=== PATIENT | male | born 1955 | race Caucasian/White ===

== ENCOUNTER 2016-09-18 18:09 | Emergency (ER) | payer OTHER ==
[2016-09-18 18:23] VITALS: RESP 16; TEMP 98.6
--- NOTE | 2016-09-18 18:55 | UCPHY ---
H & P Patient Type: Established Chief Complaint Nursing Narrative: ABDOMINAL PAIN JUST BELOW UMBILICUS, VOMITING , DIARRHEA FOR THE PAST 24 HOURS Time Seen by Provider: 09/18/16 18:33 HPI/ROS: 60-year-old male presents complaining of severe abdominal pain, nausea vomiting and diarrhea since yesterday. He denies prior history of surgery on his abdomen. He states he has had an umbilical hernia for a long time and that actually is not bothering him at present. His pain is primarily in the right lower quadrant however with it is diffusely throughout his abdomen. He has noticed a firm area in his right lower abdomen. Patient has a past medical history significant for hypertension, GERD, neuropathy, obesity. Review of systems General no fever no chills no weakness HEENT no eye pain no eye discharge. No eye redness, no sore throat Respiratory no cough, no shortness of breath Cardiac no chest pain, no peripheral edema GI positive abdominal pain positive nausea positive vomiting positive diarrhea no flank pain, no hematuria, no dysuria Musculoskeletal no myalgias, no joint pain Heme no easy bruising, no easy bleeding Endo no polyuria, no polydipsia Skin no rashes, no pruritus Neuro no syncope, no dizziness, no headaches Psych is no suicidal ideation, no homicidal ideation Source: Patient Exam Limitations: No limitations - Personal History Current Tetanus Diphtheria and Acellular Pertussis (TDAP): Yes Tetanus Vaccine Date: < 10 YEARS - Medical/Surgical History Hx Asthma: No Hx Chronic Respiratory Disease: No Hx Diabetes: No Hx Cardiac Disease: Yes Hx Renal Disease: No Hx Cirrhosis: No Hx Alcoholism: No Hx HIV/AIDS: No Hx Splenectomy or Spleen Trauma: No Other PMH: neuropathy, HTN, GERD - Family History Significant Family History: No pertinent family hx - Social History Smoking Status: Never smoked Alcohol Use: Occasionally Drug Use: None - Physical Exam Exam: 60-year-old male morbidly obese, writhing in pain secondary to abdominal pain, appears ill, afebrile Atraumatic normocephalic Extraocular muscles intact, anicteric Neck supple Lungs clear to auscultation Heart rapid rate regular rhythm Abdomen- obese, tinkling bowel sounds, umbilical hernia reducible nontender, right lower quadrant large mass firm and tender to palpation appears grossly normal Back no CVA tenderness Extremities No cyanosis clubbing or edema Skin-no rash Constitutional: Initial Vital Signs Temperature (C) 37 C 09/18/16 18:19 Heart Rate 99 09/18/16 18:19 Respiratory Rate 16 09/18/16 18:19 Blood Pressure 177/63 H 09/18/16 18:19 O2 Sat (%) 95 09/18/16 18:19 O2 Delivery Mode Room Air Allergies/Adverse Reactions: No Known Allergies Allergy (Verified 09/18/16 18:23) Home Medications: Medication Instructions Recorded Amitriptyline HCl 09/18/16 GABAPENTIN 09/18/16 Lisinopril 09/18/16 PRILOSEC 09/18/16 traMADol 09/18/16 Medical Decision Making - Diagnostics Imaging: CT abdomen positive for bowel obstruction, likely secondary to incarcerated right inguinal hernia, with edematous bowel ED Course/Re-evaluation: Patient seen and evaluated for severe abdominal pain IV established IV normal saline fluids begun Patient given ondansetron 4 mg IV push Patient given hydromorphone 1 mg IV push shortly thereafter given a 2nd mg of hydromorphone IV push Lab sent Lactate elevated at 3.2 WBC elevated 21 H&H 18 and [address] abdomen and pelvis with contrast Positive bowel obstruction likely secondary to incarcerated right inguinal hernia with edematous bowel Impression Acute bowel obstruction Plan Patient accepted in transfer to [facility] emergency department Patient accepted by the surgeon, Dr Spencer Pt to go with CD of CT abdomen - Data Points Laboratory Results: Laboratory Results 09/18/16 18:52 09/18/16 18:52 09/18/16 18:52 WBC 21.11 H 10^3/uL (3.80-9.50) RBC 5.96 10^6/uL (4.40-6.38) Hgb 18.8 H g/dL (13.7-17.5) Hct 51.2 H % (40.0-51.0) MCV 85.9 fL (81.5-99.8) MCH 31.5 pg (27.9-34.1) MCHC 36.7 g/dL (32.4-36.7) RDW 12.3 % (11.5-15.2) Plt Count 279 10^3/uL (150-400) MPV 8.9 fL (8.7-11.7) Neut % (Auto) 84.5 H % (39.3-74.2) Lymph % (Auto) 8.3 L % (15.0-45.0) [place] % (Auto) 6.7 % (4.5-13.0) Eos % (Auto) 0.0 L % (0.6-7.6) Baso % (Auto) 0.1 L % (0.3-1.7) Nucleat RBC Rel Count 0.0 % (0.0-0.2) Absolute Neuts (auto) 17.82 H 10^3/uL (1.70-6.50) Absolute Lymphs (auto) 1.75 10^3/uL (1.00-3.00) Absolute Monos (auto) 1.42 H 10^3/uL (0.30-0.80) Absolute Eos (auto) 0.01 L 10^3/uL (0.03-0.40) Absolute Basos (auto) 0.02 10^3/uL (0.02-0.10) Absolute Nucleated RBC 0.00 10^3/uL (0-0.01) Immature Gran % 0.4 % (0.0-1.1) Immature Gran # 0.09 10^3/uL (0.00-0.10) VBG Lactic Acid 3.2 H mmol/L (0.7-2.1) Sodium 140 mEq/L (134-144) Potassium 3.7 mEq/L (3.5-5.2) Chloride 99 mEq/L (97-110) Carbon Dioxide 21 L mEq/l (22-31) Anion Gap 20 H mEq/L (8-16) BUN 18 mg/dL (7-23) Creatinine 1.0 mg/dL (0.7-1.3) Estimated GFR > 60 Glucose 144 H mg/dL (70-100) Calcium 10.3 mg/dL (8.5-10.4) Total Bilirubin 1.1 mg/dL (0.1-1.4) AST 38 IU/L (17-59) ALT 32 IU/L (21-72) Alkaline Phosphatase 59 IU/L (38-126) Total Protein 7.9 g/dL (6.3-8.2) Albumin 4.6 g/dL (3.5-5.0) Lipase 151.0 IU/L (23-300) Medications Given: Discontinued Medications Hydromorphone HCl (Dilaudid) 1 mg IVP EDNOW ONE Stop: 09/18/16 19:04 Last Admin: 09/18/16 19:10 Dose: 1 mg Sodium Chloride (Ns) 1,000 mls @ 0 mls/hr IV ONCE ONE PRN Reason: Wide Open Stop: 09/18/16 18:57 Last Admin: 09/18/16 19:00 Dose: 1,000 mls Sodium Chloride (Ns) 1,000 mls @ 0 mls/hr IV ONCE ONE PRN Reason: Wide Open Stop: 09/18/16 19:14 Last Admin: 09/18/16 20:15 Dose: 1,000 mls Ceftriaxone Sodium 2 gm/ (Dextrose) 50 mls @ 100 mls/hr IV EDNOW ONE PRN Reason: Protocol Stop: 09/18/16 19:43 Last Admin: 09/18/16 20:21 Dose: 50 mls Ondansetron HCl (Zofran) 4 mg IVP EDNOW ONE Stop: 09/18/16 18:57 Last Admin: 09/18/16 18:55 Dose: 4 mg Departure - Departure Disposition: Acute Care Hospital [facility] Clinical Impression: Acute intestinal obstruction, Incarcerated right inguinal hernia Condition: Serious - PQRS PQRS Measurement: na
[2016-09-18] MEDS ORDERED: ONDANSETRON 4 MG/2 ML VIAL IVP ONE (18:56)
[2016-09-18] MEDS ORDERED: NS 1,000 ML IV ONE ×2 (18:56→19:13)
[2016-09-18 18:59] LABS: % IMMATURE GRANULYOCYTES 0.4 % (0.0-1.1); ABSOLUTE IMMATURE GRANULOCYTES 0.09 10^3/uL (0.00-0.10); ADD DIFF? NO; ADD MORPH? NO; ADD SCAN? NO; ATYPICAL LYMPHOCYTE FLAG 0 (0-99); FRAGMENT RBC FLAG 0 (0-99); HEMATOCRIT 51.2 % (40.0-51.0); HEMOGLOBIN 18.8 g/dL (13.7-17.5); LEFT SHIFT FLG 0 (0-99); LIPEMIA HEMOLYSIS FLAG 90 (0-99); MEAN CELL HEMOGLOBIN 31.5 pg (27.9-34.1); MEAN CELL HEMOGLOBIN CONCENTR. 36.7 g/dL (32.4-36.7); MEAN CELL VOLUME 85.9 fL (81.5-99.8); MEAN PLATELET VOLUME 8.9 fL (8.7-11.7); PLATELET CLUMPS FLAG 0 (0-99); PLATELET COUNT 279 10^3/uL (150-400); RED BLOOD CELL COUNT 5.96 10^6/uL (4.40-6.38); RED CELL DISTRIBUTION WIDTH 12.3 % (11.5-15.2)
[2016-09-18] MEDS ORDERED: HYDROmorphONE/DILAUDID 1 MG/ML SYR IVP ONE (19:03)
[2016-09-18 19:13] LABS: ALANINE AMINOTRANSFERASE 32 IU/L (21-72); ALBUMIN 4.6 g/dL (3.5-5.0); ALKALINE PHOSPHATASE 59 IU/L (38-126); ANION GAP 20 mEq/L (8-16); ASPARTATE AMINOTRANSFERASE 38 IU/L (17-59); BILIRUBIN,TOTAL 1.1 mg/dL (0.1-1.4); CALCIUM 10.3 mg/dL (8.5-10.4); CARBON DIOXIDE 21 mEq/l (22-31); CHLORIDE 99 mEq/L (97-110); GLOMERULAR FILTRATION RATE > 60; GLUCOSE 144 mg/dL (70-100); POTASSIUM 3.7 mEq/L (3.5-5.2); SODIUM 140 mEq/L (134-144); TOTAL PROTEIN 7.9 g/dL (6.3-8.2)
[2016-09-18] MEDS ORDERED: cefTRIAXone 2 GM in D5W 50 ML IV ONE (19:14)
[2016-09-18] MEDS ORDERED: IOPAMIDOL (ISOVUE-300) 100 ML BTL IV ONE (19:23)
[2016-09-18] MEDS: HYDROmorphONE/DILAUDID 1 MG/ML SYR IVP PRN ×2 (19:47→20:50)
[2016-09-18] MEDS ORDERED: cefTRIAXone 1 GM VIAL ONE (20:02)
[2016-09-18] MEDS ORDERED: NS 100 ML BAG IV ONE (20:03)
--- NOTE | 2016-09-18 20:47 | CT ---
CT Scan of the Abdomen and Pelvis (With Contrast) September 18, 2016 at 1944 Hours History: Vomiting, diarrhea, severe abdominal pain, morbidly obese, palpable nonpulsatile large mass right lower quadrant. Comparison: None. Technique: Axial computed tomographic images of the abdomen and pelvis were obtained with the unevent ful intravenous administration of 95 mL Isovue-300 contrast. No oral or rectal contrast which limits the study. Dose reduction techniques were utilized. CT Abdomen Findings: Lung bases: No pleural effusion.. Liver: Normal. Biliary system: No obstruction. Spleen: Normal. Pancreas: Normal. Adrenals: Normal. Kidneys: No obstruction or solid masses.. Abdominal aorta: Mild atherosclerotic aorta without aneurysm. Multiple dilated loops of small bowel involving the jejunum with decompression of the ileum and colon consistent with high-grade distal jejunal small bowel obstruction. This is secondary to a right ingu inal hernia with a loop of bowel extending into the hernia defect, distal jejunum, also demonstrating inflammatory changes, image 63 of series 2 with a transition point. Periumbilical abdominal wall hernia with mesenteric fat, measuring 8.5 x 7 cm with a small defect francis suring [address] Pelvis Findings: Right inguinal hernia with distal jejunum bowel loop extending into the hernia de fect, demonstrating a transition point and inflammatory changes consistent with incarceration and pro ximal small bowel obstruction, as described above. Multilevel severe degenerative disk disease lumbar spine, worse from L1-L2 through L5-S1 with degenerative grade 1 anterolisthesis at L4-L5 and severe bilateral facet arthropathy, resulting in severe central canal stenosis at the L4-L5 level. Right tot al hip arthroplasty. Impression: 1. Right inguinal hernia with incarcerated loop of distal jejunum and proximal small bowel obstructio n. Recommend surgical consult. 2. Periumbilical abdominal wall hernia with mesenteric fat. 3. Severe degenerative lumbar spine, resulting in severe stenosis at L4-L5. Findings and recommendations discussed with emergency department physician, Jodie Baca MD a t 2014 hours on September 18, 2016. Final report concurs with initial preliminary interpretation. A test result has been communicated to a licensed care provider and documented in the [employer] Critical Result system on 09/18/2016 20:51, Message ID [id number].
[2016-09-18 21:25] VITALS: BP 134/72; PULSE 84; O2SAT 92
== END 2016-09-18 20:55 | disposition short-term general hospital (02) ==
LOC: CED 18:09
DX: K40.30 Unilateral inguinal hernia, with obstruction, without gangrene, not specified as recurrent (principal); I10 Essential (primary) hypertension; K21.9 Gastro-esophageal reflux disease without esophagitis; E66.01 Morbid (severe) obesity due to excess calories
CPT/HCPCS: 74177-PO; 80053-PO; 83605-PO; 83690-PO; 85025-PO; 96361-PO; 96365-PO; 96375-PO; 96376-PO; 99215-PO; G0463-PO; J0696; J1170; J2405; Q9967

== ENCOUNTER 2017-03-21 21:56 | Inpatient (IN) | payer OTHER ==
--- NOTE | 2017-03-21 22:03 | EDPHY ---
H & P HPI/ROS: HPI CHIEF COMPLAINT: Left Leg swelling, pain, redness. Drainage. HISTORY OF PRESENT ILLNESS: This patient is a 61-year-old male significant past medical history for hypertension, denies having history of diabetes he has had a history of cellulitis in the past he presents emergency room by private vehicle. He states for the past 24 hours he has noticed redness swelling of his left lower extremity. He was seen at [facility] started on Bactrim. He states he decided come the emergency room tonight as it has acutely gotten bigger worse and more red. He denies fever. Pain is not extreme. He is able to ambulate. He states he has been moving and noticed that through his pant legs it has been wet draining. Past Medical History: Hypertension, history of right lower extremity cellulitis Past Surgical History: no recent surgery Social History: denies daily use drugs alcohol tobacco products. Family History: Noncontributory ROS REVIEW OF SYSTEMS: A comprehensive 10 point review of systems is otherwise negative aside from elements mentioned in the history of present illness. Exam Constitutional triage nursing summary reviewed, vital signs reviewed, awake/ alert. Eyes normal conjunctivae and sclera, EOMI, PERRLA. HENT normal inspection, atraumatic, moist mucus membranes, no epistaxis, neck supple/ no meningismus, no raccoon eyes. Respiratory clear to auscultation bilaterally, normal breath sounds, no respiratory distress, no wheezing. Cardiovascular rate normal, regular rhythm, no murmur, no edema, distal pulses normal. Gastrointestinal soft, non-tender, no rebound, no guarding, normal bowel sounds, no distension, no pulsatile mass. Genitourinary no CVA tenderness. Musculoskeletal LLE: Warm. Neurovascular intact. Rather large left lower extremity swelling edema present with yellow drainage fluid coming weeping out of the edematous leg, there is significant erythema and warmth, there is no crepitus, no evidence of necrotizing fasciitis, appears to be significant left lower extremity cellulitis, Swelling/edema present to end of foot. Multiple blisters present, medial aspect distal ankle: skin tear/blister present. no midline vertebral tenderness, full range of motion, no calf swelling, no tenderness of extremities, no meningismus, good pulses, neurovascularly intact. Skin pink, warm, & dry, no rash, skin atraumatic. Neurologic awake, alert and oriented x 3, AAOx3, moves all 4 extremities equally, motor intact, sensory intact, CN II-XII intact, normal cerebellar, normal vision, normal speech. Psychiatric normal mood/affect. Heme/Lymph/Immune no lymphadenopathy. Differential Diagnosis: includes but is not limited to in a particular order left lower extremity cellulitis, MRSA infection, strep infection, significant left lower extremity edema, DVT, left leg abscess Medical Decision Making: plan for this patient blood cultures, lactic acid, broad-spectrum antibiotics including IV vancomycin IV Zosyn to treat this acute left lower extremity cellulitis that patient tells me it has progressively gotten worse over the last 24 hours. I do recommend this patient gets an ultrasound once admitted over at [facility] to rule out DVT. He also may need MRI of his left lower extremity. As of right now in the ER will start antibiotics after blood cultures, broad-spectrum and admit to the hospital. Vital signs are reviewed. He is nontoxic appearing. No evidence of sepsis. Re-evaluation: 2218: Spoke with Dr. Remy, hospitalist who agrees to admit this patient for left lower extremity cellulitis. Plan for right now in the emergency room broad-spectrum antibiotics. Blood work. Blood cultures. And transfer over to [facility] hospital. 2224: vanco started. Zosyn Is not stocked in the PACs. Zosyn will need to be started at [facility]. Patient be transferred over by [facility]. Appropriate transfer will be set up. patient has agreed for this. Source: Patient - Personal History Tetanus Vaccine Date: < 10 YEARS - Medical/Surgical History Hx Asthma: No Hx Chronic Respiratory Disease: No Hx Diabetes: No Hx Cardiac Disease: Yes Hx Renal Disease: No Hx Cirrhosis: No Hx Alcoholism: No Hx HIV/AIDS: No Hx Splenectomy or Spleen Trauma: No Other PMH: neuropathy, HTN, GERD - Social History Smoking Status: Never smoked Constitutional: Initial Vital Signs Temperature (C) 37.2 C 03/21/17 22:08 Heart Rate 80 03/21/17 22:08 Respiratory Rate 18 03/21/17 22:08 Blood Pressure 160/86 H 03/21/17 22:08 O2 Sat (%) 97 03/21/17 22:08 O2 Delivery Mode Room Air Allergies/Adverse Reactions: No Known Allergies Allergy (Verified 03/21/17 22:07) Home Medications: Medication Instructions Recorded Amitriptyline HCl [Elavil 25 mg 25 mg PO TID 09/18/16 (RX)] Gabapentin [Neurontin 300 MG (*)] 600 mg PO TID 09/18/16 Lisinopril/Hctz 10/12.5 mg 1 ea PO DAILY 09/18/16 [Zestoretic/Prinzide 10/12.5MG (*)] Omeprazole [Prilosec 20 mg] 20 mg PO DAILY 09/18/16 traMADol [Ultram 50 mg (*)] 50 mg PO TID 09/18/16 Sulfamethox/Tmp 800/160 mg 1 tab PO BID 03/21/17 [Bactrim Ds] Medical Decision Making - Data Points Medications Given: Amitriptyline HCl (Elavil) 25 mg PO TID [facility] Stop: 09/18/17 15:59 Last Admin: 03/24/17 21:24 Dose: 25 mg Enoxaparin Sodium (Lovenox) 40 mg SC DAILY [facility] Stop: 09/18/17 08:59 Last Admin: 03/24/17 08:41 Dose: 40 mg Gabapentin (Neurontin) 600 mg PO TID [facility] Stop: 09/18/17 15:59 Last Admin: 03/24/17 21:24 Dose: 600 mg Lisinopril/HCTZ (Zestoretic) 1 ea PO DAILY [facility] Stop: 09/19/17 08:59 Last Admin: 03/24/17 08:40 Dose: 1 ea Cefazolin Sodium/Dextrose (Ancef 1 Gm (Premix)) 50 mls @ 200 mls/hr IV Q8HRS [facility] PRN Reason: Protocol Stop: 04/21/17 13:59 Last Admin: 03/24/17 21:18 Dose: 50 mls Miconazole Nitrate (Micatin 2%) 1 george TP BID [facility] Stop: 04/22/17 15:59 Last Admin: 03/24/17 21:28 Dose: 1 george Oxycodone HCl (Oxycodone Ir) 5 - 10 mg PO Q4HRS PRN PRN Reason: Pain, Severe Able to Take PO Stop: 04/01/17 01:12 Last Admin: 03/24/17 21:24 Dose: 10 mg Pantoprazole Sodium (Protonix) 40 mg PO DAILY [facility] Stop: 09/19/17 08:59 Last Admin: 03/24/17 08:40 Dose: 40 mg Polyethylene Glycol (Miralax) 17 gm PO DAILY PRN; Protocol PRN Reason: Constipation Stop: 09/20/17 17:25 Last Admin: 03/24/17 17:51 Dose: 17 gm Senna/Docusate Sodium (Senokot-S) 1 - 2 tab PO BID ADI PRN Reason: Protocol Stop: 09/20/17 20:59 Last Admin: 03/24/17 21:23 Dose: 1 tab Tramadol HCl (Ultram) 50 mg PO TID ADI Stop: 09/18/17 15:59 Last Admin: 03/24/17 21:25 Dose: 50 mg Discontinued Medications Bisacodyl (Dulcolax Rectal) 10 mg [place] DAILY PRN PRN Reason: Constipation Stop: 09/18/17 15:44 Last Admin: 03/22/17 16:05 Dose: 10 mg Fluconazole (Diflucan) 150 mg PO ONCE ONE Stop: 03/24/17 10:12 Last Admin: 03/24/17 11:02 Dose: 150 mg Vancomycin/Sodium Chloride (Vancomycin 1 Gm (Premix)) 250 mls @ 250 mls/hr IV EDNOW ONE PRN Reason: Protocol Stop: 03/21/17 23:11 Last Admin: 03/21/17 22:27 Dose: 250 mls Piperacillin/Tazobactam/Dextrose (Zosyn (Premix)) 100 mls @ 200 mls/hr IV EDNOW ONE PRN Reason: Protocol Stop: 03/21/17 22:41 Last Admin: 03/21/17 22:50 Dose: Not Given Sodium Chloride (Ns) 1,000 mls @ 0 mls/hr IV ONCE ONE PRN Reason: Wide Open Stop: 03/21/17 22:40 Last Admin: 03/21/17 22:53 Dose: 1,000 mls Sodium Chloride (Ns) 1,000 mls @ 250 mls/hr IV ONCE ONE Stop: 03/22/17 04:43 Last Admin: 03/22/17 01:48 Dose: 1,000 mls Vancomycin HCl 1.5 gm/ (Dextrose) 250 mls @ 166.667 mls/hr IV Q12H [facility] Stop: 04/21/17 08:59 Last Admin: 03/22/17 10:30 Dose: 250 mls Nystatin (Mycostatin Powder) 1 george TP TID [facility] Stop: 04/21/17 15:59 Last Admin: 03/24/17 08:42 Dose: 1 george Senna/Docusate Sodium (Senokot-S) 1 tab PO BID [facility] Stop: 09/18/17 01:13 Last Admin: 03/24/17 08:41 Dose: 1 tab Departure - Departure Disposition: [facility] Clinical Impression: Cellulitis Qualifiers: Site of cellulitis: extremity Site of cellulitis of extremity: lower extremity Laterality: left Qualified Code(s): L03.116 - Cellulitis of left lower limb Condition: Fair
[2017-03-21] MEDS ORDERED: PIPERACILLIN/TAZO 4.5 GM/DEX 100 ML IV ONE (22:12)
[2017-03-21] MEDS ORDERED: VANCOMYCIN HCL/NORMAL SALINE 250 ML IV ONE (22:12)
[2017-03-21] MEDS ORDERED: NS 1,000 ML IV ONE (22:39)
[2017-03-21 22:42] LABS: % IMMATURE GRANULYOCYTES 0.6 % (0.0-1.1); ABSOLUTE IMMATURE GRANULOCYTES 0.08 10^3/uL (0.00-0.10); ADD DIFF? NO; ADD MORPH? NO; ADD SCAN? NO; ATYPICAL LYMPHOCYTE FLAG 10 (0-99); FRAGMENT RBC FLAG 0 (0-99); HEMATOCRIT 41.1 % (40.0-51.0); HEMOGLOBIN 14.8 g/dL (13.7-17.5); LEFT SHIFT FLG 0 (0-99); LIPEMIA HEMOLYSIS FLAG 90 (0-99); MEAN CELL HEMOGLOBIN 31.2 pg (27.9-34.1); MEAN CELL VOLUME 86.7 fL (81.5-99.8); MEAN PLATELET VOLUME 9.3 fL (8.7-11.7); PLATELET CLUMPS FLAG 20 (0-99); PLATELET COUNT 191 10^3/uL (150-400); RED BLOOD CELL COUNT 4.74 10^6/uL (4.40-6.38); RED CELL DISTRIBUTION WIDTH 12.8 % (11.5-15.2)
[2017-03-21 22:50] LABS: SEDIMENTATION RATE 57 MM/HR (0-20)
[2017-03-21 22:57] LABS: ALBUMIN 3.9 g/dL (3.5-5.0); BILIRUBIN,TOTAL 0.9 mg/dL (0.1-1.4); CALCIUM 9.2 mg/dL (8.5-10.4); CREATININE 1.4 mg/dL (0.7-1.3); POTASSIUM 3.4 mEq/L (3.5-5.2); TOTAL PROTEIN 7.1 g/dL (6.3-8.2)
[2017-03-22] MEDS ORDERED: ACETAMINOPHEN 325 MG TAB PO PRN (00:44)
[2017-03-22] MEDS ORDERED: ONDANSETRON DISINTEGRATING 4 MG TAB PO PRN (00:44)
[2017-03-22] MEDS ORDERED: ONDANSETRON 4 MG/2 ML VIAL IVP PRN (00:44)
[2017-03-22] MEDS ORDERED: NS 1,000 ML IV ONE (00:44)
[2017-03-22] MEDS: oxyCODONE IR 5 MG TAB PO PRN ×2 (01:47→21:13)
[2017-03-22] MEDS: SENNOSIDES/DOCUSATE SODIUM TAB PO SCH ×3 (01:48→21:08)
--- NOTE | 2017-03-22 02:27 | PDGENHP ---
History and Physical - Chief Complaint Leg redness - History of Present Illness 61 yo M w/ hx of pre-DM and 2 prior bouts of LLE cellulitis presents with 3 days of progress L leg redness, pain, and swelling. Patient first noticed mild redness on Monday. Symptoms progressed over the next few days and the leg became red, swollen, and painful. He reports two prior similar episodes, last 2 years ago requiring IV abx. He has a prosthetic R hip but no hardware on LLE. He does have clearly onychomycotic nails and notes some recent trauma to the 3rd toe on his L foot. History Information - Allergies/Home Medication List Allergies/Adverse Reactions: No Known Allergies Allergy (Verified 03/21/17 22:07) Home Medications: Amitriptyline HCl 09/18/16 [Last Taken Unknown] GABAPENTIN 09/18/16 [Last Taken Unknown] Lisinopril 09/18/16 [Last Taken Unknown] PRILOSEC 09/18/16 [Last Taken Unknown] traMADol 09/18/16 [Last Taken Unknown] Bactrim DS 03/21/17 [Last Taken Unknown] I have personally reviewed and updated: family history, medical history - Past Medical History Additional medical history: pre-DM. Cellulitis - Family History Additional family history: Osteoarthritis - Social History Smoking Status: Never smoked Alcohol Use: Occasionally Drug Use: None Review of Systems ROS: 10pt was reviewed & negative except for what was stated in HPI & below Physical Exam Temp Pulse Resp BP Pulse Ox 36.8 C 85 18 132/66 H 93 03/22/17 00:07 03/22/17 00:07 03/22/17 00:07 03/22/17 00:07 03/22/17 00:07 Constitutional: no apparent distress, appears nourished Eyes: PERRL, EOMI Ears, Nose, Mouth, Throat: moist mucous membranes, no oral mucosal ulcers Cardiovascular: regular rate and rhythym, no murmur, rub, or gallop Respiratory: no respiratory distress, no rales or rhonchi Gastrointestinal: normoactive bowel sounds, soft, non-tender abdomen Skin: erythema (Significant erythema and warmth of LLE extending to L groin; some purulent weeping noted) Musculoskeletal: full muscle strength, no muscle tenderness Neurologic: AAOx3, CN II-XII Intact Psychiatric: interacting appropriately, not anxious Lab Data & Imaging Review 03/21/17 22:35 03/21/17 22:35 WBC 14.18 10^3/uL (3.80-9.50) H 03/21/17 22:35 RBC 4.74 10^6/uL (4.40-6.38) 03/21/17 22:35 Hgb 14.8 g/dL (13.7-17.5) 03/21/17 22:35 Hct 41.1 % (40.0-51.0) 03/21/17 22:35 MCV 86.7 fL (81.5-99.8) 03/21/17 22:35 MCH 31.2 pg (27.9-34.1) 03/21/17 22: MCHC 36.0 g/dL (32.4-36.7) 03/21/17 22:35 RDW 12.8 % (11.5-15.2) 03/21/17 22:35 Plt Count 191 10^3/uL (150-400) 03/21/17 22:35 MPV 9.3 fL (8.7-11.7) 03/21/17 22:35 Neut % (Auto) 75.6 % (39.3-74.2) H 03/21/17 22:35 Lymph % (Auto) 12.4 % (15.0-45.0) L 03/21/17 22:35 [place] % (Auto) 10.5 % (4.5-13.0) 03/21/17 22:35 Eos % (Auto) 0.6 % (0.6-7.6) 03/21/17 22:35 Baso % (Auto) 0.3 % (0.3-1.7) 03/21/17 22:35 Nucleat RBC Rel Count 0.0 % (0.0-0.2) 03/21/17 22:35 Absolute Neuts (auto) 10.73 10^3/uL (1.70-6.50) H 03/21/17 22:35 Absolute Lymphs (auto) 1.76 10^3/uL (1.00-3.00) 03/21/17 22:35 Absolute Monos (auto) 1.49 10^3/uL (0.30-0.80) H 03/21/17 22:35 Absolute Eos (auto) 0.08 10^3/uL (0.03-0.40) 03/21/17 22:35 Absolute Basos (auto) 0.04 10^3/uL (0.02-0.10) 03/21/17 22:35 Absolute Nucleated RBC 0.00 10^3/uL (0-0.01) 03/21/17 22:35 Immature Gran % 0.6 % (0.0-1.1) 03/21/17 22:35 Immature Gran # 0.08 10^3/uL (0.00-0.10) 03/21/17 22:35 ESR 57 MM/HR (0-20) H 03/21/17 22:35 VBG Lactic Acid 1.1 mmol/L (0.7-2.1) 03/21/17 22:35 Sodium 134 mEq/L (134-144) 03/21/17 22:35 Potassium 3.4 mEq/L (3.5-5.2) L 03/21/17 22:35 Chloride 98 mEq/L (97-110) 03/21/17 22:35 Carbon Dioxide 20 mEq/l (22-31) L 03/21/17 22:35 Anion Gap 16 mEq/L (8-16) 03/21/17 22:35 BUN 27 mg/dL (7-23) H 03/21/17 22:35 Creatinine 1.4 mg/dL (0.7-1.3) H 03/21/17 22:35 Estimated GFR 51 03/21/17 22:35 Glucose 105 mg/dL (70-100) H 03/21/17 22:35 Calcium 9.2 mg/dL (8.5-10.4) 03/21/17 22:35 Total Bilirubin 0.9 mg/dL (0.1-1.4) 03/21/17 22:35 AST 33 IU/L (17-59) 03/21/17 22:35 ALT 34 IU/L (21-72) 03/21/17 22:35 Alkaline Phosphatase 68 IU/L (38-126) 03/21/17 22:35 C-Reactive Protein 232.0 mg/L (<10.0) H 03/21/17 22:35 Total Protein 7.1 g/dL (6.3-8.2) 03/21/17 22:35 Albumin 3.9 g/dL (3.5-5.0) 03/21/17 22:35 Assessment & Plan Assessment: 61 yo M presenting with cellulitis of LLE. Plan: 1. LLE cellulitis - With no evidence of sepsis or systemic symptoms at this time. Suspect predisposed to recurrent cellulitis due to significant onychomycosis and trauma to 3rd digit of L foot. - Ultrasound to evaluate for DVT and subcutaneous fluid collection - Vancomycin IV noting some purulence present - Blood cultures ordered - Oxycodone PRN for pain control Diet - Regular Code - Full Ppx - LMWH Dispo - Admit to inpatient for IV abx
[2017-03-22 04:59] LABS: % IMMATURE GRANULYOCYTES 0.6 % (0.0-1.1); ABSOLUTE IMMATURE GRANULOCYTES 0.07 10^3/uL (0.00-0.10); ADD DIFF? NO; ADD MORPH? NO; ADD SCAN? NO; ATYPICAL LYMPHOCYTE FLAG 10 (0-99); FRAGMENT RBC FLAG 0 (0-99); HEMOGLOBIN 13.1 g/dL (13.7-17.5); LEFT SHIFT FLG 0 (0-99); LIPEMIA HEMOLYSIS FLAG 90 (0-99); MEAN CELL HEMOGLOBIN 30.5 pg (27.9-34.1); MEAN CELL HEMOGLOBIN CONCENTR. 34.5 g/dL (32.4-36.7); MEAN CELL VOLUME 88.6 fL (81.5-99.8); MEAN PLATELET VOLUME 9.3 fL (8.7-11.7); PLATELET CLUMPS FLAG 0 (0-99); PLATELET COUNT 159 10^3/uL (150-400); RED BLOOD CELL COUNT 4.29 10^6/uL (4.40-6.38); RED CELL DISTRIBUTION WIDTH 12.9 % (11.5-15.2)
[2017-03-22 05:21] LABS: ANION GAP 10 mEq/L (8-16); CALCIUM 8.5 mg/dL (8.5-10.4); CARBON DIOXIDE 22 mEq/l (22-31); CHLORIDE 100 mEq/L (97-110); GLOMERULAR FILTRATION RATE > 60; GLUCOSE 104 mg/dL (70-100); POTASSIUM 3.5 mEq/L (3.5-5.2); SODIUM 132 mEq/L (134-144)
[2017-03-22] MEDS: ENOXAPARIN 40 MG/0.4 ML SYR SC SCH (08:43)
[2017-03-22] MEDS ORDERED: VANCOMYCIN 1.5 GM in D5W 250 ML IV SCH (09:00)
[2017-03-22] MEDS ORDERED: VANCOMYCIN HCL/NORMAL SALINE 250 ML IV SCH (10:00)
--- NOTE | 2017-03-22 10:46 | HOSPPROG ---
Hospitalist Progress Note Assessment/Plan: # LLE cellulitis, suspect strep, recurrent, failed bactrim outpatient - no purulence on my exam, no risk for MRSA - empiric ancef - follow cultures - follow clinical course closely # toe abrasions - may be protal of entry - wound care c/s # intertriginous candidiasis - nystatin powder # idiopathic neuropathy - also risk factor for cellulitis - Elavil, gabapentin # NICO - resolved # mild hypoNa - follow Subjective: leg may look slightly better Objective: Vital Signs Temp Pulse Resp BP Pulse Ox 36.4 C 73 16 107/59 L 93 03/22/17 08:12 03/22/17 08:12 03/22/17 08:12 03/22/17 08:12 03/22/17 08:12 Laboratory Results 03/22/17 04:45 03/22/17 04:45 03/21/17 03/22/17 03/23/17 05:59 05:59 05:59 Intake Total 1250 500 Output Total 750 Balance 500 500 chart reviewed US reviewed - Physical Exam Constitutional: no apparent distress, appears nourished Cardiovascular: regular rate and rhythym, no murmur, rub, or gallop Respiratory: no respiratory distress, no rales or rhonchi, clear to auscultation Gastrointestinal: normoactive bowel sounds, soft, non-tender abdomen Musculoskeletal: other (LLE cellulitis; bright erythema to knee, mild pink to upper thigh medial aspect) ICD10 Worksheet Patient Problems: Problems Problem Status Onset Cellulitis Acute
--- NOTE | 2017-03-22 11:58 | WOCRNPDOC ---
WOCRN Advanced Assessment Note - Skin Integrity Problem, Advanced Assess Left Lower Leg Dressing Type: Mepilex Transfer Exudate Amount: Excessive Exudate Characteristic(s): Serous Marla Wound Tissue: Erythema (previously marked ) Skin Integrity Problem Comment: Multiple blisters forming and rupturing along anterior and medial leg from cellulitis. Some have de roofed exposing a clean wound bed. Toe wound is dried and scabbed. Some nail remians partially torn/ cut. Wound care recommends sample processor address this issue. Will write orders for lower leg care. Wound care will round again next week.
[2017-03-22] MEDS: NYSTATIN POWDER 15 GM BTL TP SCH ×2 (15:40→21:10)
[2017-03-22] MEDS: traMADol 50 MG TAB PO SCH ×2 (15:40→21:07)
[2017-03-22] MEDS: AMITRIPTYLINE HCL 25 MG TAB PO SCH ×2 (15:40→21:07)
[2017-03-22] MEDS: GABAPENTIN 300 MG CAP PO SCH ×2 (15:40→21:07)
[2017-03-22] MEDS ORDERED: BISACODYL 10 MG SUPP PR PRN (15:45)
[2017-03-23 04:46] LABS: % IMMATURE GRANULYOCYTES 0.7 % (0.0-1.1); ABSOLUTE IMMATURE GRANULOCYTES 0.07 10^3/uL (0.00-0.10); ADD DIFF? NO; ADD MORPH? NO; ADD SCAN? NO; ATYPICAL LYMPHOCYTE FLAG 10 (0-99); FRAGMENT RBC FLAG 0 (0-99); HEMATOCRIT 38.6 % (40.0-51.0); HEMOGLOBIN 13.2 g/dL (13.7-17.5); LEFT SHIFT FLG 0 (0-99); LIPEMIA HEMOLYSIS FLAG 90 (0-99); MEAN CELL HEMOGLOBIN 31.1 pg (27.9-34.1); MEAN CELL HEMOGLOBIN CONCENTR. 34.2 g/dL (32.4-36.7); MEAN CELL VOLUME 90.8 fL (81.5-99.8); MEAN PLATELET VOLUME 9.2 fL (8.7-11.7); PLATELET CLUMPS FLAG 0 (0-99); PLATELET COUNT 183 10^3/uL (150-400); RED BLOOD CELL COUNT 4.25 10^6/uL (4.40-6.38); RED CELL DISTRIBUTION WIDTH 13.2 % (11.5-15.2)
[2017-03-23 05:09] LABS: ANION GAP 8 mEq/L (8-16); CALCIUM 8.7 mg/dL (8.5-10.4); CARBON DIOXIDE 25 mEq/l (22-31); CHLORIDE 101 mEq/L (97-110); CREATININE 0.9 mg/dL (0.7-1.3); GLOMERULAR FILTRATION RATE > 60; GLUCOSE 105 mg/dL (70-100); POTASSIUM 4.2 mEq/L (3.5-5.2); SODIUM 134 mEq/L (134-144)
[2017-03-23] MEDS: LISINOPRIL/HCTZ 10/12.5 MG 1 EA TAB PO SCH (08:39)
[2017-03-23] MEDS: SENNOSIDES/DOCUSATE SODIUM TAB PO SCH ×2 (08:39→20:59)
[2017-03-23] MEDS: traMADol 50 MG TAB PO SCH ×3 (08:39→21:00)
[2017-03-23] MEDS: ENOXAPARIN 40 MG/0.4 ML SYR SC SCH (08:40)
[2017-03-23] MEDS: AMITRIPTYLINE HCL 25 MG TAB PO SCH ×3 (08:40→21:00)
[2017-03-23] MEDS: PANTOPRAZOLE SODIUM 40 MG TAB PO SCH (08:40)
[2017-03-23] MEDS: NYSTATIN POWDER 15 GM BTL TP SCH ×3 (08:40→21:07)
[2017-03-23] MEDS: GABAPENTIN 300 MG CAP PO SCH ×3 (08:40→21:00)
[2017-03-23] MEDS ORDERED: NON-FORMULARY NEW DRUG (Omeprazole [Prilosec 20 Mg] 20 MG) PO SCH (09:00)
--- NOTE | 2017-03-23 09:01 | HOSPPROG ---
Hospitalist Progress Note Assessment/Plan: # LLE cellulitis, suspect strep, recurrent, failed bactrim outpatient - today there is mild purulence on medial aspect of L ankle - will ask for ID assistance regarding MRSA coverage - cont empiric ancef - high risk given extent of cellulitis # toe abrasions - may be protal of entry - wound care c/s # intertriginous candidiasis - better today - nystatin powder # idiopathic neuropathy - also risk factor for cellulitis - Elavil, gabapentin # NICO - resolved # mild hypoNa - follow Subjective: leg still painful; had a BM without diarrhea Objective: Vital Signs Temp Pulse Resp BP Pulse Ox 36.9 C 76 16 135/75 H 93 03/23/17 04:11 03/23/17 04:11 03/23/17 04:11 03/23/17 08:39 03/23/17 04:11 Laboratory Results 03/23/17 04:37 03/23/17 04:37 03/22/17 03/23/17 03/24/17 05:59 05:59 05:59 Intake Total 2250 2650 Output Total 750 Balance 1500 2650 - Physical Exam Constitutional: no apparent distress, appears nourished Cardiovascular: regular rate and rhythym, no murmur, rub, or gallop Respiratory: no respiratory distress, no rales or rhonchi, clear to auscultation Gastrointestinal: normoactive bowel sounds, soft, non-tender abdomen Musculoskeletal: other (LLE with ongoing bright erythema, slightly receded from knee; less salmon pink on inner thigh) ICD10 Worksheet Patient Problems: Problems Problem Status Onset Cellulitis Acute
[2017-03-23] MEDS ORDERED: KETOROLAC 15 MG/1 ML SDV IVP PRN (11:22)
[2017-03-23] MEDS: MICONAZOLE NITRATE 15 GM CRTUBE TP SCH ×2 (16:32→21:07)
--- NOTE | 2017-03-23 17:13 | GCON ---
[f rep st] CONSULTATION INFECTIOUS DISEASE CONSULTATION. DATE OF CONSULTATION: 03/23/2017 REASON FOR CONSULTATION: Cellulitis of the left lower extremity. PHYSICIAN REQUESTING CONSULTATION: Jurgen Coats MD. HPI: 61-year-old male with 2 prior episodes of left lower extremity cellulitis , who presents to the emergency room 03/22/2017 after noticing increasing redness and swelling of his left lower extremity that were not responding to Bactrim. The patient started noticing these changes on March 20 and presented to his primary care who started him on Bactrim. Patient describes progressive redness and swelling of this leg and he presented to the emergency room on the for further evaluation. Notably, patient has been moving out of his apartment for several weeks and has sustained multiple small injuries on the lower extremities. In addition, he reports athletes foot and onychomycosis and worries this is the portal of entry. He does describe some associated malaise and subjective fevers. REVIEW OF SYSTEMS: A complete 10-point review of systems was performed and is negative except as mentioned in HPI. PAST MEDICAL HISTORY: Prediabetes, history of recurrent cellulitis, total right hip replacement, neuropathy of unknown etiology. ALLERGIES: NKDA. MEDICATIONS: The patient initially received vancomycin IV but was transitioned to cefazolin 1 g IV q.8 on 03/22/2017. He is also on gabapentin 600 mg 3 times daily, lisinopril 1 tab daily, Zofran, oxycodone IR as needed for pain. Ultram as needed for pain, Senokot 1 b.i.d. scheduled, Protonix 40 mg daily and Elavil 25 mg 3 times daily. FAMILY HISTORY: Positive for osteoarthritis. SOCIAL HISTORY: Never smoked. Occasional alcohol. No drug use. 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 PHYSICAL EXAM: VITAL SIGNS: Afebrile throughout his hospital course. Temperature today is 36.8, blood pressure is 153/80, heart rate is 82, respiratory rate 18, saturation 93% on room air. GENERAL: This is a nontoxic- appearing, obese male, lying in bed in no acute distress. HEENT: Pupils are reactive bilaterally. Oropharynx fair dentition. Moist mucous membranes. NECK : Supple. No lymphadenopathy. CARDIOVASCULAR: Regular rate, no murmurs. CHEST: Clear to auscultation bilaterally. ABDOMEN: Obese, soft, nontender. Bowel sounds are present. EXTREMITIES: Patient had marked erythema of his left lower extremity and associated swelling. Erythema was circumferential on his left lower extremity with several areas of bulla and there was serosanguineous drainage. He also had erythema tracking up his medial thigh. The patient had reported some recession. He had 2+ pedal pulses bilaterally. His right lower extremity had no edema. Patient had scaly changes and maculopapular rash on his feet in addition to thickened nails consistent with onychomycosis. NEUROLOGIC: He is alert and oriented x4. Moving all 4 extremities equally. SKIN FINDINGS: No other skin findings than documented under lower extremities. No peripheral stigmata of endocarditis. LABORATORY: White count on admission of 14,000, today is 10.6, hematocrit 38, platelets of 183, 61% neutrophils, 19% lymphocytes, 13% monocytes. Creatinine is 0.8. AST 33, ALT 34, CRP 232. Blood cultures were collected on admission , are no growth to date. Gram culture of left ankle wound, collected by me today, is pending. IMAGING: Left lower extremity Doppler was negative for DVT. ASSESSMENT AND PLAN: This is a 61-year-old gentleman with pre diabetes, hypertension, who developed left lower extremity cellulitis and lymphangitis while taking Bactrim. Certainly, portal of entry relating to multiple injuries from moving or chronic, fairly severe tinea pedis. This could be explained in multiple ways, most concerning that Bactrim does not cover Streptococcus well and this could account for progression while on oral antibiotics. Other explanation as due to severity of disease, patient simply needed IV antibiotics to get over infection. Agree with primary team's transition from vancomycin to Ancef as disease appears most consistent with Streptococcus. Nonetheless MSSA will still be covered and reviewing patient's past microbiology, patient has no history of MRSA. Assessment 1. LLE cellulitis with lymphangitis 2. Tinea Pedis and onychomycosis 3. Leukocytosis secondary to infection Plan: 1. Would continue Ancef. 2. Obtain wound culture. 3. Continue elevation of left lower extremity. 4. Would apply miconazole cream to patient's bilateral feet Thank you for this consultation. We will continue to follow on a daily basis. /[id number]/MODL MTDD
[2017-03-23] MEDS: oxyCODONE IR 5 MG TAB PO PRN (20:58)
[2017-03-24 04:58] LABS: % IMMATURE GRANULYOCYTES 2.2 % (0.0-1.1); ABSOLUTE IMMATURE GRANULOCYTES 0.21 10^3/uL (0.00-0.10); ADD DIFF? NO; ADD MORPH? NO; ADD SCAN? NO; ATYPICAL LYMPHOCYTE FLAG 60 (0-99); FRAGMENT RBC FLAG 0 (0-99); HEMATOCRIT 38.4 % (40.0-51.0); LEFT SHIFT FLG 10 (0-99); LIPEMIA HEMOLYSIS FLAG 90 (0-99); MEAN CELL HEMOGLOBIN 30.7 pg (27.9-34.1); MEAN CELL HEMOGLOBIN CONCENTR. 33.9 g/dL (32.4-36.7); MEAN CELL VOLUME 90.6 fL (81.5-99.8); MEAN PLATELET VOLUME 8.6 fL (8.7-11.7); PLATELET CLUMPS FLAG 10 (0-99); PLATELET COUNT 186 10^3/uL (150-400); RED BLOOD CELL COUNT 4.24 10^6/uL (4.40-6.38); RED CELL DISTRIBUTION WIDTH 13.2 % (11.5-15.2)
[2017-03-24] MEDS: GABAPENTIN 300 MG CAP PO SCH ×3 (08:40→21:24)
[2017-03-24] MEDS: PANTOPRAZOLE SODIUM 40 MG TAB PO SCH (08:40)
[2017-03-24] MEDS: LISINOPRIL/HCTZ 10/12.5 MG 1 EA TAB PO SCH (08:40)
[2017-03-24] MEDS: traMADol 50 MG TAB PO SCH ×3 (08:40→21:25)
[2017-03-24] MEDS: SENNOSIDES/DOCUSATE SODIUM TAB PO SCH ×2 (08:41→21:23)
[2017-03-24] MEDS: ENOXAPARIN 40 MG/0.4 ML SYR SC SCH (08:41)
[2017-03-24] MEDS: AMITRIPTYLINE HCL 25 MG TAB PO SCH ×3 (08:41→21:24)
[2017-03-24] MEDS: MICONAZOLE NITRATE 15 GM CRTUBE TP SCH ×2 (08:42→21:28)
[2017-03-24] MEDS: NYSTATIN POWDER 15 GM BTL TP SCH (08:42)
[2017-03-24] MEDS ORDERED: FLUCONAZOLE 150 MG TAB PO ONE (10:11)
--- NOTE | 2017-03-24 10:12 | HOSPPROG ---
Hospitalist Progress Note Assessment/Plan: # LLE cellulitis, suspect strep, recurrent, failed bactrim outpatient. wbc's trending down. Afebrile. - cont empiric ancef, day #2 - elevate leg above heart as able - high risk given extent of cellulitis - discussed with ID # intertriginous candidiasis / tinea pedis - likely portal of entry, better today - miconazole - needs outpt podiatry f/u # balanitis - oral fluconazole x1, miconazole to penis # idiopathic neuropathy - also risk factor for cellulitis - Elavil, gabapentin # NICO - resolved # mild hypoNa - normalized, follow # DVT PPLX - Lovenox # Dispo - cont inpt Subjective: Pt feels well. Thinks LLE redness is receding. Notes sore penis. No fever. Objective: Vital Signs Temp Pulse Resp BP Pulse Ox 37.1 C 75 14 113/64 93 03/24/17 05:07 03/24/17 05:07 03/24/17 05:07 03/24/17 05:07 03/24/17 05:07 Microbiology 03/23/17 13:38 Gram Stain - Final Ankle - Swab Laboratory Results 03/24/17 04:47 03/23/17 04:37 03/23/17 03/24/17 03/25/17 05:59 05:59 05:59 Intake Total 2650 2500 Balance 2650 2500 - Physical Exam Constitutional: no apparent distress Eyes: PERRL Ears, Nose, Mouth, Throat: moist mucous membranes Cardiovascular: regular rate and rhythym, no murmur, rub, or gallop Respiratory: no respiratory distress, clear to auscultation Gastrointestinal: normoactive bowel sounds, soft, non-tender abdomen Genitourinary: other (penile erythema with whitish fungal plaques) Skin: warm, other (LLE cellulitis with erythema, though receding from previously marked border. foam dressings in place. +tinea pedis) Musculoskeletal: full muscle strength Neurologic: AAOx3 Psychiatric: interacting appropriately ICD10 Worksheet Patient Problems: Problems Problem Status Onset Cellulitis Acute
--- NOTE | 2017-03-24 10:16 | PCMIDPN ---
Assessment/Plan: 1. Left lower extremity cellulitis, likely secondary to tinea pedis as portal of entry: Improving, as evidenced by less beet red erythema, and skin puckering around his ankle area. Patient needs to keep his extremity elevated above his heart as best as possible. Continue Ancef at present dose. Appreciate wound care assistance. 2. Tinea pedis: Continue topical clotrimazole: 3. Shani balanitis: This is fairly severe. Will give fluconazole 150 mg p. o. x1, and start topical clotrimazole in this area as well. Subjective: Patient is in good spirits. Mild constipation secondary to narcotics. No nausea or vomiting. Has not been keeping his leg elevated. Objective: Ancef 1 g IV q.8 hours day 2 T-max 37.3degrees Vital Signs Temp Pulse Resp BP Pulse Ox 37.1 C 75 14 113/64 93 03/24/17 05:07 03/24/17 05:07 03/24/17 05:07 03/24/17 05:07 03/24/17 05:07 Microbiology 03/23/17 13:38 Gram Stain - Final Ankle - Swab Laboratory Results 03/24/17 04:47 03/23/17 04:37 03/23/17 03/24/17 03/25/17 05:59 05:59 05:59 Intake Total 2650 2500 Balance 2650 2500 ESR 57 MM/HR (0-20) H 03/21/17 22:35 C-Reactive Protein 232.0 mg/L (<10.0) H 03/21/17 22:35 Blood cultures negative Ankle culture Gram stain and culture negative - Physical Exam General Appearance: no apparent distress, obese EENT: pharynx normal, No thrush Respiratory: lungs clear Extremities: other (Left lower extremity with circumferential erythema, but erythema has receded inside demarcated margins, with no obvious lymphangitis streaking up the inner thigh. I did not take down foam dressings. Tinea pedis notable between web spaces of toes, particularly on the left, with puffiness of the dorsum of his foot, and calluses along his great toe and 4th toes.) ICD10 Worksheet Patient Problems: Problems Problem Status Onset Cellulitis Acute
[2017-03-24] MEDS ORDERED: BISACODYL 10 MG SUPP PR PRN (17:26)
[2017-03-24] MEDS ORDERED: MAGNESIUM HYDROXIDE 30 ML UDCUP PO PRN (17:26)
[2017-03-24] MEDS ORDERED: LACTULOSE 20 GM/30 ML UDCUP PO PRN (17:26)
[2017-03-24] MEDS: POLYETHYLENE GLYCOL 3350 17 GM PKT PO PRN (17:51)
[2017-03-24] MEDS: oxyCODONE IR 5 MG TAB PO PRN (21:24)
[2017-03-25] MEDS: SENNOSIDES/DOCUSATE SODIUM TAB PO SCH ×2 (09:41→20:31)
[2017-03-25] MEDS: GABAPENTIN 300 MG CAP PO SCH ×3 (09:41→22:15)
[2017-03-25] MEDS: ENOXAPARIN 40 MG/0.4 ML SYR SC SCH (09:41)
[2017-03-25] MEDS: PANTOPRAZOLE SODIUM 40 MG TAB PO SCH (09:42)
[2017-03-25] MEDS: traMADol 50 MG TAB PO SCH ×3 (09:42→22:16)
[2017-03-25] MEDS: AMITRIPTYLINE HCL 25 MG TAB PO SCH ×3 (09:42→22:16)
[2017-03-25] MEDS: LISINOPRIL/HCTZ 10/12.5 MG 1 EA TAB PO SCH (09:42)
[2017-03-25] MEDS: MICONAZOLE NITRATE 15 GM CRTUBE TP SCH ×2 (09:42→20:51)
--- NOTE | 2017-03-25 10:45 | PCMIDPN ---
Assessment/Plan: Assessment: Left lower extremity cellulitis-appears streptococcal. Upper leg lymphangitis has significantly resolved. Lower leg erythema is less intense and there is demonstrated small wrinkles in the calf. Overall improving. Not to the point where he can switch to orals yet. Will continue cefazolin and observe. Plan: 1. Continue IV cefazolin. 2. Follow clinical course. 03/25/17 14:12 Subjective: He is doing better. No new fevers or chills. Notes that he has been keeping the leg propped up well. He also notes the redness is decreased. Objective: Cefazolin # 3 Vital Signs Temp Pulse Resp BP Pulse Ox 36.6 C 80 16 136/74 H 91 L 03/25/17 09:35 03/25/17 09:35 03/25/17 09:35 03/25/17 09:42 03/25/17 09:35 Microbiology 03/23/17 13:38 Gram Stain - Final Ankle - Swab Laboratory Results 03/24/17 04:47 03/23/17 04:37 03/24/17 03/25/17 03/26/17 05:59 05:59 05:59 Intake Total 2500 3900 Balance 2500 3900 ESR 57 MM/HR (0-20) H 03/21/17 22:35 C-Reactive Protein 232.0 mg/L (<10.0) H 03/21/17 22:35 - Physical Exam General Appearance: WD/WN, alert, no apparent distress, non-toxic Respiratory: lungs clear, normal breath sounds, No respiratory distress Cardiac/Chest: regular rate, rhythm, No tachycardia Extremities: pedal edema (Moderate left-sided), calf tenderness (Mild), inflammation, erythema (Moderate erythema left calf), No non-tender, No normal inspection (Left lower extremity with can fluid erythema over the calf and patton. Plantar surface of the foot is spared) Skin: normal color, warm/dry, No rash Neuro/Psych: alert, normal mood/affect, oriented x 3 ICD10 Worksheet Patient Problems: Problems Problem Status Onset Cellulitis Acute
--- NOTE | 2017-03-25 11:01 | HOSPPROG ---
Hospitalist Progress Note Assessment/Plan: 61-year-old male admitted with a left lower extremity cellulitis. Was also noted to have Shani infection, tinea pedis which may represent portal of entry. Patient is new to me today. -LLE cellulitis, suspect strep, recurrent, failed bactrim outpatient. wbc's trending down. Afebrile. - cont empiric ancef, day #3 - elevate leg above heart as able - high risk given extent of cellulitis - discussed with ID, and seen with ID today. Wound was unwrapped and examined personally by myself and Infectious Disease. - intertriginous candidiasis / tinea pedis - likely portal of entry, better today - miconazole - needs outpt podiatry f/u - balanitis - oral fluconazole x1, miconazole to penis; improving. - idiopathic neuropathy - also risk factor for cellulitis - Elavil, gabapentin - NICO - POA, resolved -mild hypoNa, POA, normalized, follow -DVT PPLX - Lovenox Subjective: No complaints. Gentleman reports that he thinks it is improving and he is does not experience pain. Denies fever or chills Objective: Vital Signs Temp Pulse Resp BP Pulse Ox 36.6 C 80 16 136/74 H 91 L 03/25/17 09:35 03/25/17 09:35 03/25/17 09:35 03/25/17 09:42 03/25/17 09:35 Microbiology 03/23/17 13:38 Gram Stain - Final Ankle - Swab Laboratory Results 03/24/17 04:47 03/23/17 04:37 03/24/17 03/25/17 03/26/17 05:59 05:59 05:59 Intake Total 2500 3900 Balance 2500 3900 - Physical Exam Constitutional: no apparent distress Eyes: PERRL Ears, Nose, Mouth, Throat: moist mucous membranes, hearing normal Cardiovascular: regular rate and rhythym, no murmur, rub, or gallop Respiratory: no respiratory distress, no rales or rhonchi, clear to auscultation Gastrointestinal: normoactive bowel sounds, soft, non-tender abdomen, no palpable masses Genitourinary: no bladder fullness Skin: warm, other (Left lower extremity shows an area of intense redness with some superficial purulence in 3 areas. Demarcation on the skin indicates that the ascending lymph angiitis has improved and declined. Posterior calf is nontender negative Homans sign and no evidence for DVT clinically.) Musculoskeletal: full muscle strength, no muscle tenderness, normal joint ROM, no joint effusions Neurologic: AAOx3, CN II-XII Intact Psychiatric: interacting appropriately ICD10 Worksheet Patient Problems: Problems Problem Status Onset Cellulitis Acute
[2017-03-25] MEDS: ACYCLOVIR 400 MG TAB PO SCH ×2 (14:32→22:15)
[2017-03-25] MEDS: POLYETHYLENE GLYCOL 3350 17 GM PKT PO PRN (18:22)
[2017-03-25] MEDS: oxyCODONE IR 5 MG TAB PO PRN (20:32)
[2017-03-26] MEDS: ACYCLOVIR 400 MG TAB PO SCH ×3 (09:35→21:28)
[2017-03-26] MEDS: GABAPENTIN 300 MG CAP PO SCH ×3 (09:36→21:27)
[2017-03-26] MEDS: AMITRIPTYLINE HCL 25 MG TAB PO SCH ×3 (09:36→21:29)
[2017-03-26] MEDS: LISINOPRIL/HCTZ 10/12.5 MG 1 EA TAB PO SCH (09:37)
[2017-03-26] MEDS: PANTOPRAZOLE SODIUM 40 MG TAB PO SCH (09:37)
[2017-03-26] MEDS: POLYETHYLENE GLYCOL 3350 17 GM PKT PO PRN (09:37)
[2017-03-26] MEDS: SENNOSIDES/DOCUSATE SODIUM TAB PO SCH ×2 (09:37→21:27)
[2017-03-26] MEDS: ENOXAPARIN 40 MG/0.4 ML SYR SC SCH (09:41)
[2017-03-26] MEDS: MICONAZOLE NITRATE 15 GM CRTUBE TP SCH ×2 (09:43→21:31)
[2017-03-26] MEDS: traMADol 50 MG TAB PO SCH ×3 (09:55→21:28)
--- NOTE | 2017-03-26 13:59 | HOSPPROG ---
Hospitalist Progress Note Assessment/Plan: -LLE cellulitis, suspect strep, recurrent, failed bactrim outpatient. - cont empiric ancef, day #4, improving - elevate leg above heart as able - discussed with ID, appreciate assistance. Wound was unwrapped and examined personally by myself and Infectious Disease. - intertriginous candidiasis / tinea pedis - miconazole topical - needs outpt podiatry f/u -screen for DM - balanitis - oral fluconazole x1, topical miconazole to penis; improving. - idiopathic neuropathy - Elavil, gabapentin - NICO - resolved -mild hypoNa -normalized -anemia -follow -may need outpt eval PCP- Dr Drake FULL CODE DVT prophy Lovenox Dispo- > 2 mdnts, continues need for IV abx and inpt wound care Subjective: Says feeling much better. No CP/SOB/n/v/d. Pain OK with current regimen. Eager to go home when able. Objective: Vital Signs Temp Pulse Resp BP Pulse Ox 98.6 F 82 18 133/82 H 91 L 03/26/17 09:20 03/26/17 09:20 03/26/17 09:20 03/26/17 09:20 03/26/17 09:20 Microbiology 03/23/17 13:38 Gram Stain - Final Ankle - Swab Wound Culture - Final Laboratory Results 03/24/17 04:47 03/23/17 04:37 03/25/17 03/26/17 03/27/17 11:59 11:59 11:59 Intake Total 3900 5000 Balance 3900 5000 - Physical Exam Constitutional: no apparent distress, appears nourished, not in pain Eyes: PERRL, anicteric sclera, EOMI Ears, Nose, Mouth, Throat: moist mucous membranes Cardiovascular: regular rate and rhythym, no murmur, rub, or gallop Respiratory: no respiratory distress, no rales or rhonchi, clear to auscultation Gastrointestinal: normoactive bowel sounds, soft, non-tender abdomen, no palpable masses Skin: other (L LE with some swelling, significant erythema distal tib/fib area, no streaking, breakdown at lateral malleolus and patton, onychomycosis/nail trauma /mary noted L>>R foot) Psychiatric: interacting appropriately, not anxious, not encephalopathic, thought process linear ICD10 Worksheet Patient Problems: Problems Problem Status Onset Cellulitis Acute
--- NOTE | 2017-03-26 14:20 | PCMIDPN ---
Assessment/Plan: Assessment: Left lower extremity cellulitis-appears streptococcal. Upper leg lymphangitis has fully resolved. Lower leg erythema is less erythematous and edematous. Overall improving. Not to the point where he can switch to orals yet. Will continue cefazolin and observe. Plan: 1. Continue IV cefazolin. 2. Follow clinical course. 03/25/17 14:12 03/26/17 14:16 Subjective: Patient is feeling somewhat better. Notes that his leg is significantly decreased in size and redness. No new fevers or chills. No rash or itching. Objective: Cefazolin # 4 Vital Signs Temp Pulse Resp BP Pulse Ox 37 C 82 18 133/82 H 91 L 03/26/17 09:20 03/26/17 09:20 03/26/17 09:20 03/26/17 09:20 03/26/17 09:20 Microbiology 03/23/17 13:38 Gram Stain - Final Ankle - Swab Wound Culture - Final Laboratory Results 03/24/17 04:47 03/23/17 04:37 03/25/17 03/26/17 03/27/17 05:59 05:59 05:59 Intake Total 3900 4000 1000 Balance 3900 4000 1000 ESR 57 MM/HR (0-20) H 03/21/17 22:35 C-Reactive Protein 232.0 mg/L (<10.0) H 03/21/17 22:35 - Physical Exam General Appearance: WD/WN, alert, no apparent distress, obese, non-toxic Respiratory: lungs clear, No respiratory distress Cardiac/Chest: regular rate, rhythm, No tachycardia Extremities: non-tender, swelling, erythema, No normal inspection Skin: normal color, warm/dry, No rash Neuro/Psych: alert, normal mood/affect, oriented x 3 ICD10 Worksheet Patient Problems: Problems Problem Status Onset Cellulitis Acute
[2017-03-26] MEDS: DOCOSANOL 2 GM CREAM TP SCH ×2 (18:09→21:38)
[2017-03-26] MEDS: oxyCODONE IR 5 MG TAB PO PRN (21:27)
[2017-03-27] MEDS: DOCOSANOL 2 GM CREAM TP SCH ×5 (05:23→21:31)
[2017-03-27 05:26] LABS: ADD DIFF? YES; ADD MORPH? NO; ADD SCAN? NO; ATYPICAL LYMPHOCYTE FLAG 60 (0-99); FRAGMENT RBC FLAG 0 (0-99); HEMATOCRIT 41.1 % (40.0-51.0); HEMOGLOBIN 14.1 g/dL (13.7-17.5); LEFT SHIFT FLG 40 (0-99); LIPEMIA HEMOLYSIS FLAG 90 (0-99); MEAN CELL HEMOGLOBIN 31.1 pg (27.9-34.1); MEAN CELL HEMOGLOBIN CONCENTR. 34.3 g/dL (32.4-36.7); MEAN CELL VOLUME 90.5 fL (81.5-99.8); MEAN PLATELET VOLUME 8.6 fL (8.7-11.7); PLATELET CLUMPS FLAG 10 (0-99); PLATELET COUNT 263 10^3/uL (150-400); RED BLOOD CELL COUNT 4.54 10^6/uL (4.40-6.38); RED CELL DISTRIBUTION WIDTH 12.8 % (11.5-15.2)
[2017-03-27 05:28] LABS: ANION GAP 8 mEq/L (8-16); CALCIUM 9.1 mg/dL (8.5-10.4); CARBON DIOXIDE 27 mEq/l (22-31); CHLORIDE 98 mEq/L (97-110); CREATININE 0.9 mg/dL (0.7-1.3); GLOMERULAR FILTRATION RATE > 60; GLUCOSE 103 mg/dL (70-100); POTASSIUM 4.9 mEq/L (3.5-5.2); SODIUM 133 mEq/L (134-144)
[2017-03-27 05:50] LABS: PLATELET ESTIMATE ADEQUATE (ADEQ); TOXIC GRANULATION PRESENT
[2017-03-27 06:40] LABS: HEMOGLOBIN A1C 5.8 % (4.0-6.0)
[2017-03-27] MEDS: MICONAZOLE NITRATE 15 GM CRTUBE TP SCH ×2 (09:00→21:32)
[2017-03-27] MEDS: SENNOSIDES/DOCUSATE SODIUM TAB PO SCH ×2 (11:16→21:28)
[2017-03-27] MEDS: AMITRIPTYLINE HCL 25 MG TAB PO SCH ×3 (11:16→21:30)
[2017-03-27] MEDS: ACYCLOVIR 400 MG TAB PO SCH ×3 (11:16→21:28)
[2017-03-27] MEDS: GABAPENTIN 300 MG CAP PO SCH ×3 (11:16→21:27)
[2017-03-27] MEDS: LISINOPRIL/HCTZ 10/12.5 MG 1 EA TAB PO SCH (11:16)
[2017-03-27] MEDS: PANTOPRAZOLE SODIUM 40 MG TAB PO SCH (11:16)
[2017-03-27] MEDS: ENOXAPARIN 40 MG/0.4 ML SYR SC SCH (11:17)
[2017-03-27] MEDS: traMADol 50 MG TAB PO SCH ×3 (11:17→21:28)
[2017-03-27] MEDS: POLYETHYLENE GLYCOL 3350 17 GM PKT PO PRN (11:30)
--- NOTE | 2017-03-27 12:42 | HOSPPROG ---
Hospitalist Progress Note Assessment/Plan: -LLE cellulitis, suspect strep, recurrent, failed bactrim outpatient. 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 Denies n/v/d/cough/cp/sob. Pain OK with current meds. Wants to go home. Objective: Vital Signs Temp Pulse Resp BP Pulse Ox 98.3 F 74 18 128/75 H 94 03/27/17 10:18 03/27/17 10:18 03/27/17 10:18 03/27/17 11:16 03/27/17 10:18 Microbiology 03/21/17 22:35 Blood Culture - Final Blood 03/21/17 22:35 Blood Culture - Final Blood 03/23/17 13:38 Gram Stain - Final Ankle - Swab Wound Culture - Final Laboratory Results 03/27/17 05:00 03/27/17 05:00 03/26/17 03/27/17 03/28/17 11:59 11:59 11:59 Intake Total 5000 1450 Balance 5000 1450 - Pending Discharge Pending Discharge Within 48 Hours: Yes Pending Discharge Date: 03/29/17 Pending Discharge Time: 11:00 - Physical Exam Constitutional: no apparent distress, appears nourished, obese Eyes: anicteric sclera, EOMI Ears, Nose, Mouth, Throat: moist mucous membranes, hearing normal Cardiovascular: regular rate and rhythym, no murmur, rub, or gallop Respiratory: no respiratory distress, no rales or rhonchi, clear to auscultation Gastrointestinal: normoactive bowel sounds, soft, non-tender abdomen, no palpable masses Skin: warm, other (L LE in bandage, did not remove) Psychiatric: interacting appropriately, not anxious, not encephalopathic, thought process linear ICD10 Worksheet Patient Problems: Problems Problem Status Onset Cellulitis Acute
[2017-03-27] MEDS: FLUCONAZOLE 100 MG TAB PO SCH (13:56)
--- NOTE | 2017-03-27 14:29 | PCMIDPN ---
Assessment/Plan: Assessment/Plan: * Lower extremity cellulitis: Continued clinical improvement with cefazolin. Lymphangitis now resolved. Still with significant area of cellulitis necessitating continued IV treatment. Suspect he may require another 48 hours of IV antibiotic therapy prior to transitioning to oral antibiotics. Continue lower extremity elevation. Findings and plan reviewed with patient today. 03/27/17 14:25 Subjective: Patient with left lower extremity pain. Overall feels like he has less swelling. Objective: Vital Signs Temp Pulse Resp BP Pulse Ox 36.8 C 74 18 128/75 H 94 03/27/17 10:18 03/27/17 10:18 03/27/17 10:18 03/27/17 11:16 03/27/17 10:18 Microbiology 03/21/17 22:35 Blood Culture - Final Blood 03/21/17 22:35 Blood Culture - Final Blood 03/23/17 13:38 Gram Stain - Final Ankle - Swab Wound Culture - Final Laboratory Results 03/27/17 05:00 03/27/17 05:00 03/26/17 03/27/17 03/28/17 05:59 05:59 05:59 Intake Total 4000 2450 Balance 4000 2450 ESR 57 MM/HR (0-20) H 03/21/17 22:35 C-Reactive Protein 232.0 mg/L (<10.0) H 03/21/17 22:35 Cefazolin # 5 Blood cultures x2 no growth - Physical Exam General Appearance: alert, no apparent distress EENT: No conjunctival petechiae Cardiac/Chest: regular rate, rhythm Extremities: inflammation (Erythema below knee extending to foot; several denuded bulla and some residual intact bulla over foot and ankle; some early peeling of skin and edema appears to be decreasing; no areas of fluctuance) Abdomen: non-tender, No distended Lymphatic: other (Left thigh lymphangitis resolved) ICD10 Worksheet Patient Problems: Problems Problem Status Onset Cellulitis Acute
[2017-03-27] MEDS: oxyCODONE IR 5 MG TAB PO PRN (16:31)
[2017-03-28] MEDS: DOCOSANOL 2 GM CREAM TP SCH ×5 (06:18→21:03)
[2017-03-28] MEDS: LISINOPRIL/HCTZ 10/12.5 MG 1 EA TAB PO SCH (08:47)
[2017-03-28] MEDS: traMADol 50 MG TAB PO SCH ×3 (08:47→21:00)
[2017-03-28] MEDS: GABAPENTIN 300 MG CAP PO SCH ×3 (08:49→21:01)
[2017-03-28] MEDS: SENNOSIDES/DOCUSATE SODIUM TAB PO SCH ×2 (08:49→21:01)
[2017-03-28] MEDS: FLUCONAZOLE 100 MG TAB PO SCH (08:49)
[2017-03-28] MEDS: ACYCLOVIR 400 MG TAB PO SCH ×3 (08:49→21:00)
[2017-03-28] MEDS: AMITRIPTYLINE HCL 25 MG TAB PO SCH ×3 (08:49→21:00)
[2017-03-28] MEDS: PANTOPRAZOLE SODIUM 40 MG TAB PO SCH (08:49)
[2017-03-28] MEDS: ENOXAPARIN 40 MG/0.4 ML SYR SC SCH (08:49)
[2017-03-28] MEDS: MICONAZOLE NITRATE 15 GM CRTUBE TP SCH ×2 (08:53→21:02)
--- NOTE | 2017-03-28 13:42 | PCMIDPN ---
Assessment/Plan: Assessment/Plan: 1. LLE cellulitis: - Currently on Ancef therapy. - Showing improvement, albeit slow. Decrease in redness and swelling - labs noted -Continue with LE elevation and importance was discussed with patient. -still needs 1-2 days more of IV antibiotics - appreciate wound care's assistance. Meds Ancef 1g q8- 03/22/17 Subjective: afebrile. less discomfort. pt feels less red and less swollen. denies sob, cough. denies abd pain or diarrhea. Objective: Vital Signs Temp Pulse Resp BP Pulse Ox 37.1 C 88 16 142/72 H 92 03/28/17 08:55 03/28/17 08:55 03/28/17 08:55 03/28/17 08:55 03/28/17 08:55 Laboratory Results 03/27/17 05:00 03/27/17 05:00 03/27/17 03/28/17 03/29/17 05:59 05:59 05:59 Intake Total 2450 1450 Balance 2450 1450 ESR 57 MM/HR (0-20) H 03/21/17 22:35 C-Reactive Protein 232.0 mg/L (<10.0) H 03/21/17 22:35 - Physical Exam General Appearance: alert, no apparent distress Respiratory: lungs clear Cardiac/Chest: regular rate, rhythm Extremities: swelling Abdomen: normal bowel sounds, non-tender, soft, No distended Skin: erythema (LLE: erythema 2/3 of leg with some retraction from demarcated lines. some improvment in swelling. weeping especially lower leg anteriorly and medially. skin warm to touch. ) ICD10 Worksheet Patient Problems: Problems Problem Status Onset Cellulitis Acute
--- NOTE | 2017-03-28 14:44 | WOCRNPDOC ---
WOCRN Advanced Assessment Note - Skin Integrity Problem, Advanced Assess Left Lower Leg Dressing Type: ABD Pad, Kerlix, Mepilex Transfer Dressing Description: Intact Exudate Amount: Minimal Exudate Color: Yellow Exudate Characteristic(s): Serous Integumentary Issue Intervention: Visualized Under Dressing Marla Wound Tissue: Erythema, Swollen, Weeping Marla Wound Swelling: Moderate Wound Bed Color: Red Wound Bed Constitution: Smooth Tissue, De-roofed Serous Blister, Draining Serous Blister Wound Edges: Irregular Site Odor: Slight Skin Integrity Problem Comment: De-roofed and partially de-roofed blisters noted on lower aspect of L leg, particularly just above the L medial ankle. Visualized under existing dressing, which is managing the exudate well. Some mild maceration just above the medial ankle. Wound bed of de-roofed blisters comprised of smooth, non-granulating tissue and new epithelium. L leg remains edematous, w/ erythema extending from the ankle to just below the knee. Patient reports decreased swelling, however leg remains painful and warm. Continue w/ existing dressing change orders, as they are managing the drainage adequately for now. Will follow up with patient on Tuesday 04/03 to monitor for changes.
[2017-03-28] MEDS: oxyCODONE IR 5 MG TAB PO PRN ×2 (16:46→21:01)
--- NOTE | 2017-03-28 16:57 | HOSPPROG ---
Hospitalist Progress Note Assessment/Plan: -LLE cellulitis, suspect strep, recurrent, failed bactrim outpatient. - cont empiric ancef, day #6, improving - elevate leg above heart as able - discussed with ID, appreciate assistance, considering transition to orals in next few days -revwd importance of intermediate card tender wound care - intertriginous candidiasis / tinea pedis - miconazole topical - needs outpt podiatry f/u -pre-DM with elev HGBA1c, revwd diet/exercise/wt loss -diflucan po x 3 days (given PO 150 mg 1x prev) - balanitis - oral fluconazole x1, topical miconazole to penis - see above - idiopathic neuropathy - Elavil, gabapentin - NICO - resolved -mild hypoNa -minimal -anemia -resolved PCP- Dr Drake FULL CODE DVT prophy Lovenox Dispo- > 2 mdnts, continues need for IV abx and inpt wound care Subjective: Feels well, denies n/v/d/constipation. Objective: Vital Signs Temp Pulse Resp BP Pulse Ox 98.8 F 88 16 142/72 H 92 03/28/17 08:55 03/28/17 08:55 03/28/17 08:55 03/28/17 08:55 03/28/17 08:55 Laboratory Results 03/27/17 05:00 03/27/17 05:00 03/27/17 03/28/17 03/29/17 11:59 11:59 11:59 Intake Total 1450 1450 Balance 1450 1450 - Physical Exam Constitutional: no apparent distress, appears nourished, not in pain Eyes: anicteric sclera, EOMI Ears, Nose, Mouth, Throat: moist mucous membranes, hearing normal Cardiovascular: regular rate and rhythym, no murmur, rub, or gallop Respiratory: no respiratory distress, no rales or rhonchi, clear to auscultation Gastrointestinal: normoactive bowel sounds, soft, non-tender abdomen, no palpable masses, No guarding, No rebound, No distension Skin: warm, other (LLE in banding- did not remove, no erythema noted above bandaged area) Psychiatric: interacting appropriately, not anxious, not encephalopathic, thought process linear ICD10 Worksheet Patient Problems: Problems Problem Status Onset Cellulitis Acute
[2017-03-29] MEDS: DOCOSANOL 2 GM CREAM TP SCH ×5 (06:38→21:17)
[2017-03-29 06:59] LABS: ANION GAP 8 mEq/L (8-16); C-REACTIVE PROTEIN 27.8 mg/L (<10.0); CALCIUM 9.2 mg/dL (8.5-10.4); CARBON DIOXIDE 27 mEq/l (22-31); CHLORIDE 97 mEq/L (97-110); CREATININE 0.9 mg/dL (0.7-1.3); GLOMERULAR FILTRATION RATE > 60; GLUCOSE 106 mg/dL (70-100); POTASSIUM 5.1 mEq/L (3.5-5.2); SODIUM 132 mEq/L (134-144)
[2017-03-29] MEDS: ACYCLOVIR 400 MG TAB PO SCH (08:24)
[2017-03-29] MEDS: PANTOPRAZOLE SODIUM 40 MG TAB PO SCH (08:24)
[2017-03-29] MEDS: LISINOPRIL/HCTZ 10/12.5 MG 1 EA TAB PO SCH (08:24)
[2017-03-29] MEDS: FLUCONAZOLE 100 MG TAB PO SCH (08:24)
[2017-03-29] MEDS: traMADol 50 MG TAB PO SCH ×3 (08:24→21:11)
[2017-03-29] MEDS: AMITRIPTYLINE HCL 25 MG TAB PO SCH ×3 (08:24→21:11)
[2017-03-29] MEDS: SENNOSIDES/DOCUSATE SODIUM TAB PO SCH ×2 (08:25→21:12)
[2017-03-29] MEDS: ENOXAPARIN 40 MG/0.4 ML SYR SC SCH (08:25)
[2017-03-29] MEDS: GABAPENTIN 300 MG CAP PO SCH ×3 (08:25→21:00)
[2017-03-29] MEDS: MICONAZOLE NITRATE 15 GM CRTUBE TP SCH ×2 (08:28→21:17)
--- NOTE | 2017-03-29 12:53 | PCMIDPN ---
Assessment/Plan: Left lower extremity cellulitis, marked improvement with significant recession of erythema ; erythema now limited to posterior portion of the foot, ankle to mid patton. Also significant decrease in swelling with wrinkling of the lower leg. Range of motion of ankle improved due to decreased swelling. two Large bulla upper mid patton and right calf without purulence. Marked decrease in CRP supportive of clinical findings. Still very mildly elevated WBC. blood and wound cultures were negative --continue elevation --Hopeful for DC tomorrow on Keflex --HIV screen Care coordinated with Dr. Prisca Shaw cefazolin 1 g IV Q 8h, # 7 Subjective: patient is feeling well with significant decrease in pain left lower extremity. Still feels his leg is too red to be discharged. Objective: Vital Signs Temp Pulse Resp BP Pulse Ox 36.4 C 78 16 110/64 93 03/29/17 09:01 03/29/17 09:01 03/29/17 09:01 03/29/17 09:01 03/29/17 09:01 Laboratory Results 03/27/17 05:00 03/29/17 05:35 03/28/17 03/29/17 03/30/17 05:59 05:59 05:59 Intake Total 1450 2300 Balance 1450 2300 ESR 57 MM/HR (0-20) H 03/21/17 22:35 C-Reactive Protein 27.8 mg/L (<10.0) H 03/29/17 05:35 - Physical Exam General Appearance: alert, no apparent distress, obese EENT: No thrush Respiratory: chest non-tender, lungs clear, No accessory muscle use Cardiac/Chest: regular rate, rhythm Extremities: swelling ( Significant improvement with wrinkling of the distal part of the left leg), erythema ( left:Erythema from mid patton to the ankle, posterior foot.) Abdomen: non-tender, soft Skin: warm/dry, No jaundice, No rash Neuro/Psych: alert, normal mood/affect, oriented x 3 - Line/s PIV Lines: No drainage, No erythema, No other (R hand c/d/i) ICD10 Worksheet Patient Problems: Problems Problem Status Onset Cellulitis Acute
[2017-03-29] MEDS: oxyCODONE IR 5 MG TAB PO PRN (16:15)
--- NOTE | 2017-03-29 16:56 | HOSPPROG ---
Hospitalist Progress Note Assessment/Plan: * LE cellulitis - severe -improving slowly on IV ancef * Intertriginous candidiasis - tinea pedis -topical miconazole + PO Diflucan * Neuropathy -Neurontin, Elavil * HTN -lisinopril/HCTZ * Obesity BMI 37 Subjective: Getting better Objective: Vital Signs Temp Pulse Resp BP Pulse Ox 36.6 C 83 16 132/72 H 94 03/29/17 16:03 03/29/17 16:03 03/29/17 16:03 03/29/17 16:03 03/29/17 16:03 Laboratory Results 03/27/17 05:00 03/29/17 05:35 03/28/17 03/29/17 03/30/17 05:59 05:59 05:59 Intake Total 1450 2300 Balance 1450 2300 d/w Dr. Shields - 1 more day IV abx LLE US - no DVT - Physical Exam Constitutional: no apparent distress, appears nourished, not in pain Cardiovascular: regular rate and rhythym, no murmur, rub, or gallop Respiratory: no respiratory distress, no rales or rhonchi, clear to auscultation Gastrointestinal: normoactive bowel sounds, soft, non-tender abdomen, no palpable masses Skin: warm, erythema, rash, other (skin breakdown in areas of cellulitis) Neurologic: AAOx3, sensation intact bilaterally Psychiatric: interacting appropriately, not anxious, not encephalopathic, thought process linear ICD10 Worksheet Patient Problems: Problems Problem Status Onset Cellulitis Acute
[2017-03-30] MEDS: DOCOSANOL 2 GM CREAM TP SCH ×3 (05:12→14:35)
[2017-03-30] MEDS: AMITRIPTYLINE HCL 25 MG TAB PO SCH (08:17)
[2017-03-30] MEDS: traMADol 50 MG TAB PO SCH (08:17)
[2017-03-30] MEDS: ENOXAPARIN 40 MG/0.4 ML SYR SC SCH (08:17)
[2017-03-30] MEDS: GABAPENTIN 300 MG CAP PO SCH (08:17)
[2017-03-30] MEDS: PANTOPRAZOLE SODIUM 40 MG TAB PO SCH (08:17)
[2017-03-30] MEDS: LISINOPRIL/HCTZ 10/12.5 MG 1 EA TAB PO SCH (08:17)
[2017-03-30] MEDS: SENNOSIDES/DOCUSATE SODIUM TAB PO SCH (08:18)
[2017-03-30] MEDS: MICONAZOLE NITRATE 15 GM CRTUBE TP SCH (08:21)
[2017-03-30 08:32] VITALS: BP 141/77; PULSE 81; RESP 16; TEMP 97.9
--- NOTE | 2017-03-30 09:15 | PCMIDPN ---
Assessment/Plan: Left lower extremity cellulitis, marked improvement with significant recession of erythema ; erythema now limited to posterior portion of the foot, ankle to mid patton - minimal changed as compared to yesterday. Suspect his disease is mediated by Streptococcus. --feel patient is improved from a clinical standpoint enough to receive IV antibiotics as an outpatient. DC on ceftriaxone (for ease of administration, once daily) through 04/03 via PIV, patient requests infusion center --Wound care at home --follow-up in [facility] MondayApril 04 at 11:30 a.m. Care coordinated with Dr. Prisca Shaw cefazolin 1 g IV Q 8h, # 8 Subjective: feeling better, still reluctant to go home Objective: Vital Signs Temp Pulse Resp BP Pulse Ox 36.6 C 81 16 141/77 H 93 03/30/17 08:30 03/30/17 08:30 03/30/17 08:30 03/30/17 08:30 03/30/17 08:30 Laboratory Results 03/27/17 05:00 03/29/17 05:35 03/29/17 03/30/17 03/31/17 05:59 05:59 05:59 Intake Total 2300 3160 Balance 2300 3160 ESR 57 MM/HR (0-20) H 03/21/17 22:35 C-Reactive Protein 27.8 mg/L (<10.0) H 03/29/17 05:35 General Appearance: alert, no apparent distress, obese EENT: No thrush Respiratory: chest non-tender, lungs clear, No accessory muscle use Cardiac/Chest: regular rate, rhythm Extremities: mild LLE swelling, but wrinkling of the distal part of the left leg, left:Erythema from mid patton to the ankle, posterior foot - stable compared to yesterday, 2 bullae Abdomen: non-tender, soft Skin: warm/dry, No jaundice, No rash Neuro/Psych: alert, normal mood/affect, oriented x 3 PIV: : No drainage, No erythema on R hand c/d/i ICD10 Worksheet Patient Problems: Problems Problem Status Onset Cellulitis Acute
--- NOTE | 2017-03-30 09:57 | PDIAF ---
- Diagnosis Diagnosis: LLE cellulitis Code Status: Full Code - Medication Management Discharge Medications: Medications to Continue on Transfer Amitriptyline HCl [Elavil] 25 mg PO TID 09/18/16 [Last Taken 03/21/17 09:00] Gabapentin [Neurontin 300 MG (*)] 600 mg PO TID 09/18/16 [Last Taken 03/21/17 09 :00] Lisinopril/Hctz 10/12.5 mg [Zestoretic/Prinzide 10/12.5MG (*)] 1 ea PO DAILY 07/23 [Last Taken 03/21/17] Omeprazole [Prilosec 20 mg] 20 mg PO DAILY 09/18/16 [Last Taken 03/21/17] traMADol [Ultram 50 mg (*)] 50 mg PO TID 09/18/16 [Last Taken 03/21/17 09:00] cefTRIAXone 1 GM/DEXTROSE [Rocephin 1 gm (Premix)] 1 gm IV DAILY #4 bag [Last Taken Unknown] oxyCODONE IR [Oxycodone Ir (*)] 5 - 10 mg PO Q4HRS PRN #20 tab 03/30/17 [Last Taken Unknown] [employer] Antibiotics: ceftriaxone 1gm IV daily Group Home Antibiotic Stop Date: 04/04/17 (PIV) Discharge Medications: Refer to the Discharge Home Medication list for PRN reason. PICC Care - Routine: N/A - Orders Services needed: Home Care, Registered Nurse, Physical Therapy Home Care Face to Face: I certify that this patient was under my care and that I had the required [id number] encounter meeting the encounter requirements on the discharge day. My findings support the fact that the patient is homebound as defined in CMS Chapter 7 Medicare Benefits Manual 30.1.1, The condition of the patient is such that there exists a normal inability to leave home and consequently, leaving home would require a considerable and taxing effort. - Labs/Radiology CBC Date: 04/03/17 (once) CMP Date: 04/03/17 (once) Call or Fax Lab and Imaging Results to: [facility]ian[facility] [phone] - Follow Up Care Current Providers and Referrals: Robert Drake MD [Primary Care Provider] - As per Instructions Violeta Shields MD [Medical Doctor] - 04/04/17 11:30 am
--- NOTE | 2017-03-30 10:27 | PDIAF ---
- Diagnosis Diagnosis: LLE cellulitis Code Status: Full Code - Medication Management Discharge Medications: Medications to Continue on Transfer Amitriptyline HCl [Elavil] 25 mg PO TID 09/18/16 [Last Taken 03/21/17 09:00] Gabapentin [Neurontin 300 MG (*)] 600 mg PO TID 09/18/16 [Last Taken 03/21/17 09 :00] Lisinopril/Hctz 10/12.5 mg [Zestoretic/Prinzide 10/12.5MG (*)] 1 ea PO DAILY 07/23 [Last Taken 03/21/17] Omeprazole [Prilosec 20 mg] 20 mg PO DAILY 09/18/16 [Last Taken 03/21/17] traMADol [Ultram 50 mg (*)] 50 mg PO TID 09/18/16 [Last Taken 03/21/17 09:00] cefTRIAXone 1 GM/DEXTROSE [Rocephin 1 gm (Premix)] 1 gm IV DAILY #4 bag [Last Taken Unknown] oxyCODONE IR [Oxycodone Ir (*)] 5 - 10 mg PO Q4HRS PRN #20 tab 03/30/17 [Last Taken Unknown] Wood [employer]er Antibiotics: ceftriaxone 1gm IV daily Long-Term Antibiotic Stop Date: 04/04/17 (PIV) Discharge Medications: Refer to the Discharge Home Medication list for PRN reason. PICC Care - Routine: N/A - Orders Services needed: Home Care, Registered Nurse, Physical Therapy, Occupational Therapy Home Care Face to Face: I certify that this patient was under my care and that I had the required [id number] encounter meeting the encounter requirements on the discharge day. My findings support the fact that the patient is homebound as defined in CMS Chapter 7 Medicare Benefits Manual 30.1.1, The condition of the patient is such that there exists a normal inability to leave home and consequently, leaving home would require a considerable and taxing effort. Diet Recommendation: no restrictions on diet Wound Care Instructions: LLE wound care - Labs/Radiology CBC Date: 04/03/17 (once) CMP Date: 04/03/17 (once) Call or Fax Lab and Imaging Results to: [email or web address] [phone] - Follow Up Care Current Providers and Referrals: Robert Drake MD [Primary Care Provider] - As per Instructions Violeta Shields MD [Medical Doctor] - 04/04/17 11:30 am
[2017-03-30] MEDS: oxyCODONE IR 5 MG TAB PO PRN (11:31)
[2017-03-30 13:50] VITALS: O2SAT 96
--- NOTE | 2017-03-30 18:01 | GDS ---
[f rep st] DISCHARGE SUMMARY DISCHARGE DIAGNOSES: 1. Severe left lower extremity cellulitis. 2. Intertriginous candidiasis and tinea pedis. 3. Neuropathy. 4. Hypertension. 5. Obesity, body mass index 37. HISTORY: The patient is a 61-year-old male who presents with progressive left leg redness, pain, an d swelling. He was found to have a severe cellulitis of the left leg. Ultrasound was negative for DVT. Infectious Disease was consulted. He was started on IV Ancef and has had improvement, althoug h at the time of hospital discharge will need further IV antibiotics as an outpatient. Source of in fection is felt to be skin breakdown related to a fungal infection of his toes. He was treated with antifungals here in the hospital and has had improvement there, and needs outpatient followup with Podiatry for definitive care. He does have some skin breakdown related to the cellulitis and wound care has been arranged through Home Health post discharge. Four more days of IV ceftriaxone to be a dministered at the infusion center through peripheral IV. At that point, he will follow up with Dr. Violeta Shields, and she will transition him to oral antibiotics as an outpatient. DISCHARGE MEDICATIONS: Please see computerized record for full detailed list. NEW MEDICATIONS: 1. Ceftriaxone 1 g IV daily for 4 more days and then follow up with Dr. Shields for transition to or al antibiotic. 2. Oxycodone 5 to 10 mg every 4 hours as needed, just 20 tablets dispensed. ADDITIONAL DISCHARGE INSTRUCTIONS: 1. Home health arranged for PT, OT, VNS for wound care and home safety. He prefers to return to [facility] infusion center to receive daily IV ceftriaxone through a peripheral IV. 2. Follow up with Podiatry for further management of fungal infection of the toes. Greater than 30 minutes' time was spent arranging this discharge. Patient was seen and examined by me on the day of discharge. /[id number]/MODL
== END 2017-03-30 14:43 | disposition home health service (06) | DRG 603 ==
LOC: CED 21:56 → CEDHOLD 22:17 → F1N 23:46
PROVIDERS: ADMIT Student in an Organized Health Care Education/Training Program; ATTEND Student in an Organized Health Care Education/Training Program
DX: L03.116 Cellulitis of left lower limb (principal); B37.89 Other sites of candidiasis; B35.3 Tinea pedis; E66.9 Obesity, unspecified; I10 Essential (primary) hypertension; G60.9 Hereditary and idiopathic neuropathy, unspecified; K21.9 Gastro-esophageal reflux disease without esophagitis; B37.42 Candidal balanitis; B00.1 Herpesviral vesicular dermatitis; Z68.37 Body mass index [BMI] 37.0-37.9, adult
CPT/HCPCS: 80053-PO; 83605-PO; 85025-PO; 85652-PO; 97165-GO; J0690; J0696; J1650; J2543; J3370

== ENCOUNTER → 2017-05-11 | Outpatient (CLI) | payer OTHER | LOC: BMCIMAGING 12:37 | PROVIDERS: ATTEND Podiatrist Foot & Ankle Surgery | DX: M19.072 Primary osteoarthritis, left ankle and foot (principal); M20.12 Hallux valgus (acquired), left foot; Z87.2 Personal history of diseases of the skin and subcutaneous tissue ==